=== PATIENT | male | born 1965 | race African-American/Black ===

== ENCOUNTER 2017-11-25 00:03 | Emergency (ER) | payer BC, OTHER ==
[~2017-11-25] VITALS: Ht 190.5 cm; Wt 117.0 kg
[2017-11-25 00:22] LABS: HEMATOCRIT 37.2 % (38.0-50.0); HEMOGLOBIN 13.2 G/DL (12.5-16.6); MCH 30.6 PG (29.0-34.0); MCHC 35.5 G/DL (30.0-36.0); MCV 86.3 FL (86-99); PLATELET COUNT 178 K/uL (156-360); RBC DIS.WIDTH-CV 12.1 % (11.8-14.6); RBC DIS.WIDTH-SD 38.4 % (39-53); RED BLOOD COUNT 4.31 M/uL (4.00-5.50); WHITE BLOOD COUNT 3.9 K/uL (4.1-10.2)
[2017-11-25 00:33] LABS: ALBUMIN 4.1 g/dL (3.2-4.8); CHLORIDE 107 mEq/L (99-109); POTASSIUM 3.8 mEq/L (3.7-5.4); SODIUM 138 mEq/L (136-147)
[2017-11-25 00:35] LABS: GLUCOSE 224 mg/dL (70-99)
[2017-11-25 00:36] LABS: TOTAL PROTEIN 7.5 g/dL (6.4-8.3)
[2017-11-25 00:37] LABS: TOTAL BILIRUBIN 0.6 mg/dL (0.0-1.0)
[2017-11-25 00:39] LABS: ALKALINE PHOSPHATASE 53 IU/L (3-129)
[2017-11-25 00:40] LABS: UREA NITROGEN (BUN) 14 mg/dL (9-23)
[2017-11-25 00:41] LABS: AST (GOT) 18 IU/L (2-34); GFR ESTIMATE (CALCULATED) > 59 mL/min/ (58.99-99999)
[2017-11-25 00:42] LABS: ALT (GPT) 15 IU/L (3-49)
[2017-11-25] MEDS ORDERED: PHENERGAN1.25 MG/ML PO (01:00)
[2017-11-25] MEDS ORDERED: MOTRIN600 MG PO (01:00)
[2017-11-25 01:24] VITALS: BP 132/90
== END 2017-11-25 01:24 | disposition home or self-care (01) ==
LOC: EME 00:03
DX: J11.1 Influenza due to unidentified influenza virus with other respiratory manifestations (principal); F17.200 Nicotine dependence, unspecified, uncomplicated
CPT/HCPCS: 80053; 81003; 85027; 99281; 99284